=== PATIENT | male | born 1935 | race Caucasian/White ===

== ENCOUNTER 2016-08-04 10:24 | Day surgery (SDC) | payer MEDICARE, BC ==
[2016-07-28 12:24] LABS: HEMOGLOBIN 17.5 g/dL (13.6-17.8)
[2016-07-28 12:35] LABS: CHLORIDE, SERUM 104 MMOL/L (96-112); CO2 (CARBON DIOXIDE) 28 MMOL/L (24-34); GFR AFRICAN AMERICAN 66 ML/MIN (>=60); GFR NON AFRICAN AMERICAN 57 ML/MIN (>=60); POTASSIUM, SERUM 4.1 MMOL/L (3.5-5.3); SODIUM, SERUM 141 MMOL/L (135-148)
[2016-07-28 12:36] LABS: BUN (BLOOD UREA NITROGEN) 11 MG/DL (6-23); CALCIUM, SERUM 10.5 MG/DL (8.5-10.4); GLUCOSE, SERUM 153 MG/DL (60-99)
[2016-07-28 13:28] LABS: ASCORBIC ACID (UR NOT ORDER) NEG (NEG); BILIRUBIN, URINE NEGATIVE (NEG); KETONE, URINE NEGATIVE (NEG); LEUKOCYTE ESTERASE(NOT OR TRACE (NEG); WBC (NOT ORDERED) (RFLEX) 5 (0-5)
--- NOTE | ~2016-08-04 | OP ---
Record Of Operation [facility] [address] [place]. [address] NAME: PATRICK BAGLEY JR : 39 STATUS : [facility]#: [id number] AGE: 81 ADM/REG DATE : 08/04/16 MR#: [id number] REPORT SERV DATE: 08/04/16 DICTATED BY: DAKOTA AGGARWAL III DATE: 08/04/16 REPORT STATUS : Draft TRANSCRIBED BY: MODL DATE: 08/04/16 DATE OF PROCEDURE: 08/04/2016 PREOPERATIVE DIAGNOSIS: Left ureteropelvic junction calculus. POSTOPERATIVE DIAGNOSIS: Left ureteropelvic junction calculus. PROCEDURE: Extracorporeal shock wave lithotripsy. SURGEON: Dakota Aggarwal M.D. ANESTHESIA: MAC. SPECIMENS: None. BLOOD LOSS: None. COMPLICATIONS: None. INDICATION: Mr. Bagley is a 81-year-old white male with a history of nephrolithiasis. He has a known left UPJ calculus with some obstruction, although he is relatively asymptomatic. Consent is obtained for ESWL. PROCEDURE: After consent was obtained, the patient was identified. He was taken to the lithotripsy suite and placed in the supine position. His stone was visualized and the unit was made ready. MAC anesthesia was administered and lithotripsy commenced. He ultimately received 2500 shocks to a power level of 5. The patient tolerated the procedure well. PH/BUBBA Dakota Aggarwal III, M.D. / [id number] CC: Dave Cifuentes III, M.D.
[~2016-08-04 10:24] MED LIST: ADVAIR115P; ADVAIR115P INH; AGGRENOX; AGGRENOX PO; ASAB PO; FISH-EPA1000 MG PO; GLUCCHONDR PO; GLUCOPHAGE1000 MG PO; HERBAL SUPPL; IMOD PO; MULTIVITAMI1 PO; NEXIUM PO; OTC EYE DROP OPH; PRILOSEC PO; PRIN10 PO; T PO; VANCOCIN HCL125 MG PO; ZANTAC PO; ZOCOR40 PO; [UNRECOGNIZED DRUG - OTHER]; [UNRECOGNIZED DRUG - OTHER]
== END 2016-08-04 16:21 | disposition home or self-care (01) ==
LOC: SDC 10:24
PROVIDERS: Urology
PROC: 0TF7XZZ Fragmentation in Left Ureter, External Approach (ICD-10-PCS; principal; 2016-08-04 13:00)
DX: N20.0 Calculus of kidney (principal); E11.9 Type 2 diabetes mellitus without complications; I10 Essential (primary) hypertension; D69.6 Thrombocytopenia, unspecified; Z86.73 Personal history of transient ischemic attack (TIA), and cerebral infarction without residual deficits; Z88.8 Allergy status to other drugs, medicaments and biological substances; Z87.891 Personal history of nicotine dependence; Z98.890 Other specified postprocedural states
CPT/HCPCS: 50590; 74000; 80048; 81001; 82962; 85014; 85018; 93005

== ENCOUNTER 2016-09-04 11:54 | Day surgery (SDC) | payer MEDICARE, BC ==
[2016-09-01 10:37] LABS: HEMATOCRIT 49.3 % (40.0-51.0); HEMOGLOBIN 17.2 g/dL (13.6-17.8)
[2016-09-01 10:47] LABS: BUN (BLOOD UREA NITROGEN) 11 MG/DL (6-23); CALCIUM, SERUM 8.9 MG/DL (8.5-10.4); CHLORIDE, SERUM 106 MMOL/L (96-112); CO2 (CARBON DIOXIDE) 25 MMOL/L (24-34); CREATININE 1.18 MG/DL (0.70-1.30); GFR AFRICAN AMERICAN 68 ML/MIN (>=60); GFR NON AFRICAN AMERICAN 58 ML/MIN (>=60); GLUCOSE, SERUM 220 MG/DL (60-99); POTASSIUM, SERUM 4.7 MMOL/L (3.5-5.3); SODIUM, SERUM 138 MMOL/L (135-148)
--- NOTE | ~2016-09-04 | OP ---
Record Of Operation [facility] [address] [place]. [address] NAME: PATRICK BAGLEY JR : 39 STATUS : [facility]#: [id number] AGE: 81 ADM/REG DATE : 09/04/16 MR#: [id number] REPORT SERV DATE: 09/04/16 DICTATED BY: DAKOTA AGGARWAL III DATE: 09/04/16 REPORT STATUS : Draft TRANSCRIBED BY: MODL DATE: 09/04/16 DATE OF PROCEDURE: 09/04/2016 PREOPERATIVE DIAGNOSIS: Left ureteral calculus. POSTOPERATIVE DIAGNOSIS: Left renal calculi. PROCEDURES: Cystoscopy, left retrograde pyelogram, left ureteronephroscopy and laser ablation of stone with fragment removal, and stent placement. SURGEON: Dakota Aggarwal M.D. ANESTHESIA: General. SPECIMEN: Stone. DRAINS: 7 x 28 cm double-J ureteral stent. INDICATION: Mr. Bagley is a 81-year-old, white male who had a left UPJ stone which was blocking the left kidney. He presents today for the above procedure. PROCEDURE IN DETAIL: After consent was obtained, the patient was identified. He was taken to the OR and put to sleep. He was then positioned in the low lithotomy position and prepped and draped in the usual fashion. The 22-Wallisian cystoscope was made ready and advanced along the course of urethra into the bladder. The bladder was lightly trabeculated. The prostatic urethra was consistent with a prior TURP. It was opened. Left ureteral orifice was identified, and a cone-tipped ureteral catheter was used to obtain a left retrograde study. There were no obvious filling defect in the ureter. There did appear to be stones in the lower pole of the kidney. A Glidewire was then passed up the left ureter and then followed by the rigid ureteroscope. However, because of the patient's size, I was unable to get into the renal collecting system with the scope; therefore, a second guidewire was passed through the ureteroscope and into the kidney. Over this wire, a flexible ureteroscope was advanced. There was no stone in the UPJ. There were three stones in the lower pole, the first of which was grasped with the engage basket. However, because of the narrowing at the area of the UPJ, I was unable to pull it out intact. Therefore, the stone was dropped back into the kidney, and the holmium laser was then used to ablate the stone. The same procedure was carried out for the other two stones in the lower pole. After adequate fragmentation was performed, the ureteroscope was removed. The guidewire was then backloaded through the cystoscope, which was advanced to the bladder. A 7-Wallisian x 28 cm double-J ureteral stent was advanced over the wire. When in position, the wire was removed. The stent was noted to coil in the renal collecting system as well as the bladder. The bladder was then drained. The scope removed. A string was left attached to the stent was affixed to the penis. The patient awakened and taken to recovery in stable condition. Record Of Operation [address] [place]. [address] NAME: PATRICK BAGLEY JR : 39 STATUS : [facility] PAT#: [id number] AGE: 81 ADM/REG DATE : 09/04/16 MR#: [id number] REPORT SERV DATE: 09/04/16 DICTATED BY: DAKOTA AGGARWAL III DATE: 09/04/16 REPORT STATUS : Draft TRANSCRIBED BY: BUBBA DATE: 09/04/16 PH/BUBBA Dakota Aggarwal III, M.D. / [id number] CC: Dave Cifuentes III, M.D.
[2016-09-04 13:29] LABS: PFA (COL/EPI) 105 SEC (72-180)
[2016-09-10 14:24] LABS: SOURCE OF STONE Left Kidney (()); STONE COMPOSITION TWO DNR (())
== END 2016-09-04 20:25 | disposition home or self-care (01) ==
LOC: SDC 11:54
PROVIDERS: Urology
PROC: BT1FZZZ Fluoroscopy of Left Kidney, Ureter and Bladder (ICD-10-PCS; 2016-09-04)
PROC: 0TF48ZZ Fragmentation in Left Kidney Pelvis, Via Natural or Artificial Opening Endoscopic (ICD-10-PCS; principal; 2016-09-04 14:00)
DX: N20.0 Calculus of kidney (principal); I10 Essential (primary) hypertension; E11.9 Type 2 diabetes mellitus without complications; H35.30 Unspecified macular degeneration; Z90.79 Acquired absence of other genital organ(s); Z98.890 Other specified postprocedural states; Z86.2 Personal history of diseases of the blood and blood-forming organs and certain disorders involving the immune mechanism; Z86.73 Personal history of transient ischemic attack (TIA), and cerebral infarction without residual deficits; Z87.891 Personal history of nicotine dependence; Z98.41 Cataract extraction status, right eye; Z98.42 Cataract extraction status, left eye; Z96.1 Presence of intraocular lens; Z88.7 Allergy status to serum and vaccine; Z79.899 Other long term (current) drug therapy
CPT/HCPCS: 74420; 80048; 82365; 82962; 85014; 85018; 85049; 85576; 93005; C1769; C2617; J0330; J2405; J2710; J3010; Q9967